=== PATIENT | male | born 1955 | race Hispanic/Latino ===

== ENCOUNTER 2018-08-17 10:26 | Day surgery (SDC) | payer BC ==
[2018-08-14 08:20] VITALS: BMI 29.1
[2018-08-17 11:29] LABS: BASO # 0.02 K/mm3 (0.0-2.0); BASO % 0.3 % (0.0-3.0); EOS # 0.1 (0.0-0.7); EOS % 1.4 % (1.5-5.0); HEMOGLOBIN 14.8 g/dL (14.0-18.0); LYMPH # 2.2 (1.2-3.4); LYMPH % 28.1 % (22.0-35.0); MEAN CELL VOLUME 91.1 fl (80.0-105.0); MEAN CORPUSCULAR HEMOGLOBIN 29.3 pg (25.0-35.0); MEAN CORPUSCULAR HGB CONC 32.2 g/dl (31.0-37.0); MEAN PLATELET VOLUME 9.7 fl (7.0-11.0); MONO # 0.6 (0.1-0.6); MONO % 8.2 % (1.0-6.0); RBC 5.05 10^6/uL (3.5-6.1); RED CELL DISTRIBUTION WIDTH 12.8 % (11.5-14.5); WHITE BLOOD COUNT 7.7 10^3/uL (4.5-11.0)
[2018-08-17 11:40] LABS: BLOOD UREA NITROGEN 21 mg/dL (7-21); CALCIUM 9.6 mg/dL (8.4-10.5); GFR NON-AFRICAN AMERICAN > 60
[2018-08-17] MEDS ORDERED: Propofol 10 mg/ml Inj (20 ML) ONE (12:05)
[2018-08-17] MEDS ORDERED: Succinylcholine 200 mg/10 ml Inj IV ONE (12:05)
[2018-08-17] MEDS ORDERED: Sodium Chloride 0.9% 1,000 ML IV SCH (12:30)
[2018-08-17 13:02] VITALS: RESP 18
[2018-08-17 13:32] VITALS: TEMP 98.7; O2SAT 99
[2018-08-17 13:56] VITALS: BP 122/62; PULSE 65
--- NOTE | 2018-08-17 22:35 | CARD ---
APPROVED REPORT Date of service: 08/17/2018 EKG Measurement Heart [id number] 174P-7 [id number] <Conclusion> Normal sinus rhythm NDSTT abnormalities Borderline ECG
== END 2018-08-17 14:20 | disposition home or self-care (01) ==
LOC: SDS 10:26
PROVIDERS: ATTEND Psychiatry & Neurology Addiction Medicine
DX: F32.9 Major depressive disorder, single episode, unspecified (principal); F22 Delusional disorders
CPT/HCPCS: 36415; 80048; 85025; 90870; 93005; J0330; J2704; J7030; J7120

== ENCOUNTER 2018-08-20 09:46 | Day surgery (SDC) | payer BC ==
[2018-08-14 08:20] VITALS: BMI 29.1
[2018-08-20] MEDS ORDERED: Propofol 10 mg/ml Inj (20 ML) ONE (11:06)
[2018-08-20] MEDS ORDERED: Succinylcholine 200 mg/10 ml Inj IV ONE (11:07)
[2018-08-20] MEDS ORDERED: Sodium Chloride 0.9% 1,000 ML IV SCH (12:15)
[2018-08-20 12:56] VITALS: O2SAT 99
[2018-08-20 13:12] VITALS: RESP 18; TEMP 98.1
[2018-08-20 13:49] VITALS: BP 139/88; PULSE 60
== END 2018-08-20 14:00 | disposition home or self-care (01) ==
LOC: SDS 09:46
PROVIDERS: ATTEND Psychiatry & Neurology Addiction Medicine
DX: F32.9 Major depressive disorder, single episode, unspecified (principal); I10 Essential (primary) hypertension
CPT/HCPCS: 90870; J0330; J2704; J7030

== ENCOUNTER 2018-08-23 09:47 | Day surgery (SDC) | payer BC ==
[2018-08-14 08:20] VITALS: BMI 29.1
[2018-08-23 10:37] VITALS: O2SAT 99
[2018-08-23] MEDS ORDERED: Lidocaine 1% 5ml Abboject ONE (11:14)
[2018-08-23] MEDS ORDERED: Succinylcholine 200 mg/10 ml Inj IV ONE (11:15)
[2018-08-23] MEDS ORDERED: Propofol 10 mg/ml Inj (20 ML) ONE (11:15)
[2018-08-23] MEDS ORDERED: Sodium Chloride 0.9% 1,000 ML IV SCH (12:30)
[2018-08-23 14:06] VITALS: RESP 16; TEMP 98.1
[2018-08-23 14:07] VITALS: BP 128/88; PULSE 80
== END 2018-08-23 14:00 | disposition home or self-care (01) ==
LOC: SDS 09:47
PROVIDERS: ATTEND Psychiatry & Neurology Addiction Medicine
DX: F32.89 Other specified depressive episodes (principal); I10 Essential (primary) hypertension
CPT/HCPCS: 90870; J0330; J2704; J7030

== ENCOUNTER 2018-08-27 10:10 | Day surgery (SDC) | payer BC ==
[2018-08-14 08:20] VITALS: BMI 29.1
[2018-08-27] MEDS ORDERED: Succinylcholine 200 mg/10 ml Inj IV ONE (13:26)
[2018-08-27] MEDS ORDERED: Propofol 10 mg/ml Inj (20 ML) ONE (13:26)
[2018-08-27 15:27] VITALS: BP 152/97; PULSE 63; RESP 18; TEMP 98.6; O2SAT 98
== END 2018-08-27 15:45 | disposition home or self-care (01) ==
LOC: SDS 10:10
PROVIDERS: ATTEND Psychiatry & Neurology Addiction Medicine
DX: F32.9 Major depressive disorder, single episode, unspecified (principal); F22 Delusional disorders; I10 Essential (primary) hypertension
CPT/HCPCS: 90870; J0330; J2704; J7120

== ENCOUNTER → 2018-08-30 | Day surgery (SDC) | payer BC | LOC: SDS 10:12 | DX: F22 Delusional disorders (principal) ==